=== PATIENT | female | born 1975 | race Two or more races ===

== ENCOUNTER 2017-01-08 02:44 | Emergency (ER) | payer SELFPAY ==
[~2017-01-08] VITALS: Ht 154.9 cm; Wt 63.5 kg
[2017-01-08] MEDS ORDERED: NKM (02:47)
--- NOTE | 2017-01-08 03:15 | Emergency Room Report ---
History of Present Illness General Chief Complaint: Dizziness Source: Patient Present Illness HPI Is a 41-year-old female brought in by EMS for chief complaint of dizziness. Patient said she was walking got very angry and felt dizzy. No chest pain. No loss of consciousness. Able to walk to the ambulance without a problem. No suicidal thought homicidal thought. Said that she only had 2 ounces of alcohol tonight. No other complaint. Patient History Past Medical History: see triage record, old chart reviewed Past Surgical History: other Pertinent Family History: none Social History: Reports: alcohol use Last Menstrual Period: 23 days ago Now: No Immunizations: other Reviewed Nursing Documentation: PMH: Agreed, PSxH: Agreed Nursing Documentation-PMH Past Medical History: No Stated History Review of Systems Eye: Denies: blurred vision, eye pain ENT: Denies: ear pain, nose congestion, throat swelling Respiratory: Denies: cough, shortness of breath Cardiovascular: Denies: chest pain, palpitations Gastrointestinal: Denies: abdominal pain, diarrhea, nausea, vomiting Musculoskeletal: Denies: back pain, joint pain Skin: Denies: rash Neurological: Denies: headache, numbness Endocrine: Denies: increased thirst, increased urine Hematologic/Lymphatic: Denies: easy bruising All Other Systems: negative except mentioned in HPI Physical Exam Vital Signs Date Time Temp Pulse Resp B/P Pulse Ox O2 Delivery O2 Flow Rate FiO2 01/08/17 02:44 97.0 100 16 131/61 100 Room Air vitals normal Sp02 EP Interpretation: reviewed, normal General Appearance: well appearing, no apparent distress, alert Head: normocephalic, atraumatic Eyes: bilateral eye EOMI, bilateral eye PERRL ENT: hearing grossly normal, normal pharynx Neck: full range of motion, supple, no meningismus Respiratory: chest non-tender, lungs clear, normal breath sounds Cardiovascular #1: regular rate, rhythm, no murmur Gastrointestinal: normal bowel sounds, non tender, no mass, no organomegaly, no bruit, non-distended Musculoskeletal: back normal, gait/station normal, normal range of motion Psychiatric: mood/affect normal Skin: warm/dry Medical Decision Making Diagnostic Impression: Primary Impression: Dizziness ER Course Patient presents with a complaint of dizziness. Maybe anxiety related. She is walking around without any difficulty. See no evidence of TIA or CVA. No evidence of vertigo. We'll discharge home. Last Vital Signs Date Time Temp Pulse Resp B/P Pulse Ox O2 Delivery O2 Flow Rate FiO2 01/08/17 02:44 97.0 100 16 131/61 100 Room Air Status: improved Disposition: HOME, SELF-CARE Condition: Stable Patient Instructions: Dizziness Additional Instructions: Abstain from drugs and alcohol. Followup with your Dr. in 7 days. Return if worse. SISSY AVELAR M.D. January 08, 2017 03:15
[2017-01-08 03:30] VITALS: BP 96/57
[2017-01-08 04:25] VITALS: BP 96/57
== END 2017-01-08 04:25 | disposition home or self-care (01) ==
LOC: EDBD 02:44 → EMR 03:01
DX: R42 Dizziness and giddiness (principal)
CPT/HCPCS: 99282